=== PATIENT | male | born 1935 | race Caucasian/White ===

== ENCOUNTER → 2018-10-23 | Day surgery (SDC) | payer OTHER, MEDICAID ==
[~2018-10-23] MED LIST: ASPIR 8181 MG PO; ATORVASTATIN CA40 MG PO; FLONASE 0.05%50 MCG NASAL; HYDROCODON-ACE1 EAC7 PO; LASIX 40 MG TAB40 M2 PO; LISINOPRIL5 MG PO; LOPRESSOR25 PO; RAPID FLOW PO; STIOLTO RESPIMAT4 GM INH; TRAMADOL 50 MG50 MG PO; URIBEL CAPSULE1 EACH PO
--- NOTE | ~2018-10-23 | OP ---
[address] [address] OPERATIVE REPORT Name: ODONNELLRAMÍREZ Room: [facility]#: [id number] Admission: 10/23/18 Attend Phys: Chano Cooper II Discharge: Date of : 33 Report #: [id number] THIS REPORT FOR: //name// CC: CHANO Kincaid DATE OF SERVICE: 10/23/2018 PREOPERATIVE DIAGNOSIS: Right carpal tunnel syndrome. POSTOPERATIVE DIAGNOSIS: Right carpal tunnel syndrome. PROCEDURE: Right carpal tunnel release. SURGEON: Chano Cooper II, DO. SCIENTIFIC TECHNICAL WRITER: SCARLET Tam. ANESTHESIA: LMA. ESTIMATED BLOOD LOSS: Minimum. ANTIBIOTICS: Per operative report. DRAINS: None. COMPLICATIONS: None. CONDITION OF THE PATIENT: Stable to recovery room. BRIEF HISTORY: The patient was seen in the preoperative area. The patient was discussed the EMG results as having carpal tunnel syndrome as well as having some cervical impingement of the nerves within the lower cervical spine. The patient was discussed the long-term nature of this as well as cervical irritation that he may have incomplete results of this release. However, he has elected to proceed with this as the beginning of his treatment to see if he can get improvement prior to having any neck intervention done. This is discussed with the patient and family in detail and they wished to proceed. DESCRIPTION OF PROCEDURE: The patient was taken to the operative suite and placed supine on the operating room table and given appropriate anesthesia. The patient had a well-padded tourniquet applied to the upper extremity, which was inflated to 250 mmHg after Esmarch exsanguination for the duration of the procedure. He was sterilely prepped and draped. Surgery was begun by a midline incision of the palm and it was carried down to [place] [address] OPERATIVE REPORT Name: RAMÍREZ ODONNELL Room: [facility]#: [id number] Admission: 10/23/18 Attend Phys: Chano Cooper II Discharge: Date of : 33 Report #: [id number] transverse carpal ligament was then found and ligated in both proximal and distal directions. This was done under direct visualization to be clearly transected. 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 Irrigation was then performed of the wound. It was then closed with nylon in simple fashion. Sterile dressing and Dermabond was applied. The patient was transferred to the recovery room recovery in stable condition. Counts were correct throughout the procedure. By: [id number] Cooper II, DO /nt
[2018-10-23 08:59] LABS: HEMATOCRIT 35.9 % (42.0-52.0); HEMOGLOBIN 12.1 gm/dL (14.0-18.0); MCH 34.1 pg (26.0-34.0); MCHC 33.8 g/dL (28.0-37.0); MCV 100.9 fL (80.0-100.0); MPV 7.4 fl. (7.2-11.1); RBC 3.56 mil/uL (4.50-6.00); RDW-CV 13.8 % (10.5-14.5); WBC 6.8 thou/uL (4.0-11.0)
[2018-10-23 09:04] LABS: CALCIUM 9.1 mg/dL (8.5-10.1); CREATININE 1.5 mg/dL (0.6-1.3); POTASSIUM 4.4 mmol/L (3.5-5.1)
[2018-10-23 09:09] LABS: ALBUMIN 3.5 g/dL (3.4-5.0); TOTAL BILIRUBIN 0.4 mg/dL (<0.1-1.0); TOTAL PROTEIN 6.7 g/dL (6.4-8.2)
--- NOTE | 2018-10-23 11:36 | EKG ---
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1935 Requested By: Chano Cooper Order Number: [id number] Silviano MD: Catarino Garcia Measurements Intervals Oriental Rate: 80 P: 54 MS: 156 QRS: 123 QRSD: 131 T: 39 QT: 410 QTc: 473 Interpretive Statements Sinus rhythm RBBB and LPFB Inferior infarct, old Baseline wander in lead(s) III No previous ECG available for comparison Electronically Signed On 10-23-2018 11:36:05 [employer] by Catarino Garcia [email or web address] <ELECTRONICALLY SIGNED> By: Catarino Garcia MD, [facility] 10/23/18 1136 Catarino Garcia MD, [facility] /EPI
== END | disposition home or self-care (01) ==
LOC: M.SUR 07:47
PROVIDERS: Orthopaedic Surgery
DX: G56.01 Carpal tunnel syndrome, right upper limb (principal); Z79.82 Long term (current) use of aspirin; Z79.899 Other long term (current) drug therapy; Z79.891 Long term (current) use of opiate analgesic